=== PATIENT | female | born 1985 | race Two or more races ===

== ENCOUNTER 2018-04-21 20:04 | Emergency (ER) | payer MEDICAID ==
[~2018-04-21] VITALS: Ht 170.2 cm; Wt 54.4 kg
[2018-04-21 22:40] VITALS: BP 124/59
[2018-04-21] MEDS ORDERED: ETOMIDATE (2MG/ML) 20ML VIAL IV ONE (23:11)
[2018-04-22] MEDS ORDERED: ETOMIDATE (2MG/ML) 20ML VIAL IV ONE (04:15)
== END 2018-04-22 01:40 | disposition home or self-care (01) ==
LOC: ER 20:04
DX: S52.251A Displaced comminuted fracture of shaft of ulna, right arm, initial encounter for closed fracture (principal); Z88.0 Allergy status to penicillin; Z88.2 Allergy status to sulfonamides; Y04.0XXA Assault by unarmed brawl or fight, initial encounter; Y93.9 Activity, unspecified; Y99.8 Other external cause status; Y92.89 Other specified places as the place of occurrence of the external cause
CPT/HCPCS: 25535; 73090; 73100; 99152

== ENCOUNTER 2018-05-07 05:57 | Day surgery (SDC) | payer MEDICAID ==
[~2018-05-07] VITALS: Ht 157.5 cm; Wt 56.2 kg
[2018-05-07] MEDS ORDERED: ceFAZolin 1GM/50ML 50 ML IV ONE (07:02)
[2018-05-07] MEDS ORDERED: LIDOCAINE 1% HCL (LOCAL ANESTH.) INJ 20ML MDV ONE ×2 (07:09→07:13)
[2018-05-07] MEDS ORDERED: SUCCINYLCHOLINE CHLORIDE 20 MG/ML 10ML VIAL IV ONE (07:10)
[2018-05-07] MEDS ORDERED: MIDAZOLAM HCL 1MG/1ML-2 ML VIAL ONE (07:12)
[2018-05-07] MEDS ORDERED: BUPIVACAINE 0.25% INJ 50ML VIAL ONE (07:13)
[2018-05-07] MEDS ORDERED: PROPOFOL 10 MG/ML 20 ML IV ONE (07:15)
[2018-05-07] MEDS ORDERED: LIDOCAINE HCL 2% TOP JELLY 5ML TOP ONE (07:16)
[2018-05-07] MEDS ORDERED: METOCLOPRAMIDE HCL 5MG/ml INJ 2ml VIAL ONE (07:16)
[2018-05-07] MEDS ORDERED: fentaNYL CITRATE 100 MCG/2 ML VL ONE (07:25)
[2018-05-07] MEDS ORDERED: MORPHINE SULFATE 8mg/ml INJ SDV IV PRN (07:45)
[2018-05-07] MEDS ORDERED: NALOXONE HCL 0.4 MG/ML VIAL IV PRN (07:45)
[2018-05-07] MEDS ORDERED: ONDANSETRON HCL 4 MG/2 ML VIAL IV ONE (07:45)
[2018-05-07] MEDS ORDERED: KETOROLAC TROMETH 30 MG/ML 1ML VIAL ONE (07:47)
[2018-05-07] MEDS ORDERED: MEPERIDINE HCL (50 MG/ML) 1 ML VIAL ONE ×2 (09:22→09:40)
[2018-05-07] MEDS: MEPERIDINE HCL (25 MG/ML) 1ML VIAL IM PRN ×2 (09:25→09:35)
[2018-05-07 10:21] VITALS: BP 138/78
== END 2018-05-07 09:16 | disposition home or self-care (01) ==
LOC: SUR 05:57 → MERGE 05:57 → SUR 09:16
PROVIDERS: ATTEND Orthopaedic Surgery Adult Reconstructive Orthopaedic Surgery
DX: S52.201A Unspecified fracture of shaft of right ulna, initial encounter for closed fracture (principal); I10 Essential (primary) hypertension; F10.99 Alcohol use, unspecified with unspecified alcohol-induced disorder; Z88.0 Allergy status to penicillin; Z88.1 Allergy status to other antibiotic agents; Z88.2 Allergy status to sulfonamides; Z82.49 Family history of ischemic heart disease and other diseases of the circulatory system; Z79.1 Long term (current) use of non-steroidal anti-inflammatories (NSAID); Z79.899 Other long term (current) drug therapy; Z79.891 Long term (current) use of opiate analgesic; X58.XXXA Exposure to other specified factors, initial encounter; Y93.9 Activity, unspecified; Y92.9 Unspecified place or not applicable; Y99.9 Unspecified external cause status
CPT/HCPCS: 25545; J2175; J2765; J3010; 73090; 76000; C1713; J0330; J0690; J1885; J2001; J2250; J2405; J2704; J3490